=== PATIENT | female | born 1950 | race Two or more races ===

== ENCOUNTER → 2024-08-17 | Outpatient (CLI) | payer OTHER, SELFPAY ==
--- NOTE | 2024-08-17 14:11 | XR_ITS ---
Examination: Left knee 2 views Technique one AP lateral left knee 2 views Exam date and time: August 17, 2024 at 1422 hours INDICATIONS: Left knee pain beginning 3 months ago. FINDINGS: Moderate to advanced tricompartment osteoarthritis most severe patellofemoral joint Moderate knee effusion Moderate osteopenia No fracture IMPRESSION: Moderate to advanced tricompartment osteoarthritis
== END | disposition home or self-care (01) ==
PROVIDERS: PCP Family Medicine; Referring Provider Family Medicine; Visit Provider Family Medicine
DX: M17.12 Unilateral primary osteoarthritis, left knee (principal)
CPT/HCPCS: 73560

== ENCOUNTER → 2024-12-14 | Outpatient (CLI) | payer OTHER, SELFPAY ==
[2024-12-14 08:43] LABS: Basophils % (Auto) 1 % (0-2.5); Eosinophils # (Auto) 0.5 Thou/mm3 (0.0-0.5); Eosinophils % (Auto) 6 % (0-10); Hematocrit 41.6 % (36.0-46.0); Hemoglobin 14.1 g/dL (12.0-16.0); Immature Granulocytes % (Auto) 0 % (0-0); Immature Granulocytes Auto 0.02 Thou/mm3 (0.00-0.00); Lymphocytes # (Auto) 2.6 Thou/mm3 (1.0-4.8); Lymphocytes % (Auto) 36 % (10-50); Mean Corpuscular HGB Conc 33.9 g/dl (31.0-37.0); Mean Corpuscular Hemoglobin 30.3 pg (25.0-35.0); Mean Corpuscular Volume 90 fL (80-100); Monocytes # (Auto) 0.6 Thou/mm3 (0.0-0.8); Monocytes % (Auto) 8 % (0-12); Neutrophils # (Auto) 3.7 Thou/mm3 (1.8-7.7); Neutrophils % (Auto) 50 % (37-80); Nucleated Red Blood Cell % 0 /100 WBC (0); Platelet Count 284 Thou/mm3 (140-440); RDW Standard Deviation 42.4 fL (36.4-46.3); Red Blood Count 4.65 Miln/mm3 (4.00-5.20); White Blood Count 7.4 Thou/mm3 (3.6-11.0)
[2024-12-14 08:54] LABS: Alanine Aminotransferase 12 U/L (10-49); Albumin, Serum 4.2 gm/dL (3.4-4.8); Albumin/Globulin Ratio 1.5 (1.2-2.2); Alkaline Phosphatase 93 U/L (46-116); Anion Gap 7 (7-16); Aspartate Amino Transferase 13 U/L (0-34); BUN/Creatinine Ratio 24 Ratio (12-20); Bilirubin,Total 0.9 mg/dL (0.3-1.2); Blood Urea Nitrogen 17 mg/dL (9-23); Calcium 9.4 mg/dL (8.3-10.6); Calcium (Corrected) 9.4 mg/dL (8.5-10.1); Carbon Dioxide 28.5 mMol/L (20.0-31.0); Cardiac Risk Estimate 4.6 RATIO (3.7-5.6); Chloride 108 mMol/L (98-107); Cholesterol 228 mg/dL (132-200); Creatinine (Component) 0.7 mg/dL (0.6-1.3); Globulin 2.8 gm/dL (2.3-3.5); Glucose 107 mg/dL (74-106); HDL Cholesterol 50 mg/dL (40-60); LDL Cholesterol,Calculated 150 mg/dL (0-130); Osmolality,Calculated 286 (275-295); Potassium 3.9 mMol/L (3.4-5.1); Sodium 143 mMol/L (136-145); Triglycerides 138 mg/dL (30-150); eGFR > 60 See Note
[2024-12-14 08:59] LABS: Glucose Estimated Average 105 mg/dL (80-131); Hemoglobin A1C 5.3 % Hgb (4.8-6.0)
== END | disposition home or self-care (01) ==
LOC: COPL 07:28
PROVIDERS: PCP Family Medicine; Referring Provider Family Medicine; Visit Provider Family Medicine
DX: E78.5 Hyperlipidemia, unspecified (principal); I10 Essential (primary) hypertension
CPT/HCPCS: 36415; 80053; 80061; 83036; 85025

== ENCOUNTER → 2024-12-22 | Outpatient (CLI) | payer OTHER, SELFPAY ==
[2024-12-27 06:33] LABS: Fecal Globin Result NOT DETECTED (NOT DETECTED)
== END | disposition home or self-care (01) ==
LOC: SLDO 09:50
PROVIDERS: PCP Family Medicine; Referring Provider Family Medicine; Visit Provider Family Medicine
DX: Z12.11 Encounter for screening for malignant neoplasm of colon (principal)
CPT/HCPCS: 82274; G0328

== ENCOUNTER → 2024-12-29 | Outpatient (CLI) | payer OTHER, SELFPAY ==
--- NOTE | 2024-12-29 09:00 | XR_ITS ---
Examination: Screening digital mammography, bilateral Computer aided detection 3-D breast Tomosynthesis, bilateral Date and time of exam: December 29, 2024 0836 hours Compared to mammograms dating to May 04, 2014 Indication: Screening Technique: Nonmagnified MLO, CC views of the breasts to been obtained, reconstructed from 3-D Tomosynthesis images. R2 computer aided detection program utilized for evaluation of suspicious masses and/or abnormal calcifications. 3-D Tomosynthesis images obtained. Findings: Scattered areas of fibroglandular density. Benign calcifications. No interval suspicious masses Impression: BI-RADS category II: Benign Findings. Recommend 1 year follow-up mammogram.
== END | disposition home or self-care (01) ==
LOC: CDIM 08:25
PROVIDERS: Referring Provider Family Medicine; Visit Provider Family Medicine
DX: Z12.31 Encounter for screening mammogram for malignant neoplasm of breast (principal); R92.323 Mammographic fibroglandular density, bilateral breasts; R92.1 Mammographic calcification found on diagnostic imaging of breast
CPT/HCPCS: 77063; 77067

== ENCOUNTER → 2025-01-19 | Outpatient (CLI) | payer OTHER, SELFPAY ==
--- NOTE | 2025-01-19 | XR_ITS ---
Examination: Foot, right, 3 views Technique: AP, oblique, lateral views foot, 3 views Date and time of exam: January 19, 2025 1202 hours INDICATIONS: Right foot pain beginning one week ago FINDINGS: Significant osteopenia Mild narrowing first metatarsophalangeal joint No fractures Small plantar posterior bony calcaneal spurs Significant osteoarthritis talonavicular joint IMPRESSION: Significant osteoarthritis talonavicular joint
== END | disposition home or self-care (01) ==
LOC: CDIM 11:40
PROVIDERS: PCP Family Medicine; Referring Provider Nurse Practitioner Family; Visit Provider Nurse Practitioner Family
DX: M19.071 Primary osteoarthritis, right ankle and foot (principal)
CPT/HCPCS: 73630

== ENCOUNTER 2025-04-06 09:06 | Outpatient (AMB) | payer OTHER, SELFPAY ==
[2025-04-06 09:43] VITALS: BP 169/93; PULSE 56; RESP 19; TEMP 36.7; O2SAT 96; BMI 28.4
--- NOTE | 2025-04-06 09:43 | PD.ORTHCLVIS ---
Vital signs 04/06/25 09:43 Height 1.57 m Height Method Stated Weight 70.562 kg Weight Measurement Method Standing Scale BMI 28.4 BP 169/93 H Blood Pressure Source Automatic Cuff Blood Pressure Location Left Upper Arm Position Sitting Respiration 19 Pulse 56 L Pulse Source Monitor Temp 98.0 F Temp Source Temporal Artery Scan Pulse Oximetry (%) 96 Oxygen Delivery Method Room Air Med/Allergies Allergies & Medications Allergies hydrochlorothiazide Allergy (Severe, Verified 04/06/25 09:44) Swelling of Lip/Tongue/Throat valsartan Allergy (Severe, Verified 04/06/25 09:44) Swelling of Lip/Tongue/Throat Medication Reconciliation meloxicam 7.5 mg tablet 7.5 mg PO QDAY #45 tabs 04/06/25 [Rx] Exam Exam Patient is in no acute distress and is cooperative with the examination today. Patient has a normal mood and affect. Breathing is nonlabored. In no respiratory distress. Bilateral extremities were evaluated and demonstrates sensation intact to light touch. Palpable pedal pulses are present. No significant edema is present. Right knee incisions clean dry intact. Range of motion 0 to 110 degrees. Left knee is in valgus deformity. Knee feels stable varus valgus stress as well as AP translation. She has a lot of pain laterally Assessment and Plan Problem List (1) Pain in left knee: Status: Acute Plan: Patient is a pleasant 74-year-old female with left knee arthritis with films that are nonweightbearing. I would like to get weightbearing films. We sent her prescription for meloxicam. She is not interested in surgery at this time. We will see her back after her x-rays are done. I sent her prescription for meloxicam. 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 ([id number]) [place] Intake Visit Data Collection New Patient or Established: New Patient (never been to [facility]) Reason for Visit:: OA LEFT KNEE Seen by Clinical Staff ONLY (RN/MA): Yes Chlorinator Required: No PCP or OBGYN visit in last 3 months: Yes Hx Now: No Do You Feel Safe at Home: Yes Authorities Contacted: N/A Questionairres Past Medical History Past Medical History Have you ever been diagnosed with any of the following: Neurological Problems Seizures: No Cardiology Problems Congestive Heart Failure: No Hypertension: Yes Respiratory Problems Chronic Obstructive Pulmonary Disease (COPD): No Smoking: No Smoking Cessation Counseling: No Smoking Exposure: No Genital/Urinary Problems Renal Disease: No Musculoskeletal Problems Arthritis: Yes Endocrine Problems Diabetes Mellitus Type 1: No Diabetes Mellitus Type 2: No Blood Problems Anemia: No Other Problems Blood Transfusions: No Anesthesia Reactions: No Chicken Pox: No Measles: No Mumps: No Cancer: No Surgical History Total Knee Replacement: Yes (2011 DR NORBERT Pablo [facility]) Subjective Visit Visit for: new patient and knee (LEFT) Immunization / Flu Flu Vaccine in the Last 12 Months: Yes Flu Vaccine Exclusion Criteria: Already Received History of Present Illness Chief complaint: OA LEFT KNEE Date of injury / onset of symptoms: 2 YEARS Patient is a 74yo female with left knee pain for several years. She has not had significant conservative treatment on the left. She has not tried injections for the left knee. She is very active and likes to go to [facility]. She has a history of a right total knee replacement. Hesitant with that and she had a very protracted course Personal History Occupation: RETIRED Red flag PMH: none Pain Pain level (0-10): 7 Pain duration: CONSTANT Pain location: inside (medial), outside (lateral), anterior and posterior Pain quality: sharp, dull, aching, shocking and other (specify) Pain timing: night, increases with activity and stairs Associated signs & symptoms: weakness Ambulatory data Ambulatory device: none Treatments Number of previous injections: 1 Improvement with previous injections: Yes Number of Physical Therapy sessions: 0 Improvement with PT: No Improvement with NSAIDS: no Review of Systems Review of Systems: All systems negative unless otherwise noted in HPI.
--- NOTE | 2025-04-06 09:53 | XR_ITS ---
Examination: Bilateral knees 2 views Right lateral knee left lateral knee 2 views Bilateral axial knees single view TECHNIQUE: Bilateral AP knees standing single view, bilateral PA knees standing single view flexion Standing right lateral knee left lateral knee 2 views Bilateral axial knees single view total 5 views Date and time: April 06, 2025 1006 hours INDICATIONS: Bilateral knee pain one year. FINDINGS: Severe osteopenia Total right knee arthroplasty. Satisfactory alignment. No loosening of the prosthetic components No right patellar dislocation Moderate to advanced left knee tricompartment osteoarthritis, severe narrowing lateral joint space left knee Significant osteoarthritis lateral patellofemoral joint No fracture or patellar dislocation IMPRESSION: Moderate to advanced left knee tricompartment osteoarthritis including severe narrowing lateral joint space left knee
== END 2025-04-06 09:58 | disposition home or self-care (01) ==
PROVIDERS: PCP Family Medicine; Referring Provider Family Medicine; Supervising Provider Orthopaedic Surgery Adult Reconstructive Orthopaedic Surgery; Visit Provider Orthopaedic Surgery Adult Reconstructive Orthopaedic Surgery
DX: M25.562 Pain in left knee (principal); M17.12 Unilateral primary osteoarthritis, left knee; I10 Essential (primary) hypertension
CPT/HCPCS: 73564; 99203; G0463

== ENCOUNTER 2025-05-08 08:02 | Outpatient (AMB) | payer OTHER, SELFPAY ==
--- NOTE | 2025-05-08 08:07 | ORTHONT_ITS ---
Vital signs 05/08/25 08:11 Height 1.57 m Height Method Measured Weight 70.562 kg Weight Measurement Method Standing Scale BMI 28.6 BP 170/99 H Blood Pressure Source Automatic Cuff Blood Pressure Location Left Upper Arm Position Sitting Respiration 18 Pulse 72 Pulse Source Monitor Temp 98.0 F Temp Source Temporal Artery Scan Pulse Oximetry (%) 93 L Oxygen Delivery Method Room Air Med/Allergies Allergies & Medications Allergies hydrochlorothiazide Allergy (Severe, Verified 05/08/25 08:12) Swelling of Lip/Tongue/Throat valsartan Allergy (Severe, Verified 05/08/25 08:12) Swelling of Lip/Tongue/Throat Medication Reconciliation meloxicam 7.5 mg tablet 7.5 mg PO QDAY #45 tabs 04/06/25 [Rx Confirmed 05/08/25] Exam Exam Patient is in no acute distress and is cooperative with the examination today. Patient has a normal mood and affect. Breathing is nonlabored. In no respiratory distress. Bilateral extremities were evaluated and demonstrates sensation intact to light touch. Palpable pedal pulses are present. No significant edema is present. Right knee incisions clean dry intact. Range of motion 0 to 110 degrees. Left knee is in valgus deformity. Knee feels stable varus valgus stress as well as AP translation. She has a lot of pain laterally X-rays of the left knee demonstrate valgus deformity. There is moderate arthritis laterally. Assessment and Plan Problem List (1) Pain in left knee: Status: Acute Plan: Patient is a pleasant 74-year-old female with left knee arthritis with films that are nonweightbearing. I would like to get weightbearing films. We sent her prescription for meloxicam. She is not interested in surgery at this time. We discussed that she has severe arthritis. She does not want any Injections at this time. She reports that she is fine with just anti-inflammatories. Advanced Care Planning Discussion Advance care planning discussed with:: patient and child Office Procedures GNS Level of Care Nursing/Assessment Patient Status: Established Patient Nursing Assessment/Reassesment: Medication Reconciliation, Update PMH in EMR and Vital Signs Coordination of Care: Complex Care and Chronic Disease 1-5, Education Complex Pt/Fam, Consent,records obtained, informed consent, Results/Orders obtained and Staff clarify orders Established Patient Charge Established Patient Point Assignment: 95 Established Patient Point Charge: EP Level 3 (80-115) MA Intake Visit Data Collection New Patient or Established: Established Patient (seen at [facility] within 3 years) Reason for Visit:: BILATERAL KNEE XRAY RESULTS Seen by Clinical Staff ONLY (RN/MA): 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 PCP or OBGYN visit in last 3 months: Yes Hx Now: No Do You Feel Safe at Home: Yes Authorities Contacted: N/A Questionairres Past Medical History Past Medical History Have you ever been diagnosed with any of the following: Neurological Problems Seizures: No Cardiology Problems Congestive Heart Failure: No Hypertension: Yes Respiratory Problems Chronic Obstructive Pulmonary Disease (COPD): No Smoking: No Smoking Cessation Counseling: No Smoking Exposure: No Genital/Urinary Problems Renal Disease: No Musculoskeletal Problems Arthritis: Yes Endocrine Problems Diabetes Mellitus Type 1: No Diabetes Mellitus Type 2: No Blood Problems Anemia: No Other Problems Blood Transfusions: No Anesthesia Reactions: No Chicken Pox: No Measles: No Mumps: No Cancer: No Surgical History Total Knee Replacement: Yes (2011 DR NORBERT Pablo [facility]) Subjective Visit Visit for: follow up visit and knee Immunization / Flu Flu Vaccine in the Last 12 Months: Yes Flu Vaccine Exclusion Criteria: Already Received History of Present Illness Chief complaint: BILATERAL KNEE PAIN XRAY RESULTS Date of injury / onset of symptoms: 2 YEARS Patient is a 74yo female with left knee pain for several years. She has not had significant conservative treatment on the left. She has not tried injections for the left knee. She is very active and likes to go to [facility]. She has a history of a right total knee replacement. Hesitant with that and she had a very protracted course. Personal History Occupation: RETIRED Red flag PMH: none Pain Pain level (0-10): 0 Pain duration: CONSTANT Pain location: inside (medial), outside (lateral), anterior and posterior Pain quality: sharp, dull, aching, shocking and other (specify) Pain timing: night, increases with activity and stairs Associated signs & symptoms: weakness Ambulatory data Ambulatory device: none Treatments Number of previous injections: 1 Improvement with previous injections: Yes Number of Physical Therapy sessions: 0 Improvement with PT: No Improvement with NSAIDS: no Review of Systems Review of Systems: All systems negative unless otherwise noted in HPI.
[2025-05-08 08:11] VITALS: BP 170/99; PULSE 72; RESP 18; TEMP 36.7; O2SAT 93; BMI 28.6
== END 2025-05-08 08:40 | disposition home or self-care (01) ==
LOC: HODSRG 08:02
PROVIDERS: PCP Family Medicine; Referring Provider Family Medicine; Supervising Provider Orthopaedic Surgery Adult Reconstructive Orthopaedic Surgery; Visit Provider Orthopaedic Surgery Adult Reconstructive Orthopaedic Surgery
DX: M25.562 Pain in left knee (principal); M17.12 Unilateral primary osteoarthritis, left knee; I10 Essential (primary) hypertension
CPT/HCPCS: 99213; G0463